=== PATIENT | female | born 1985 | race Hispanic/Latino ===

== ENCOUNTER 2021-04-12 15:44 | Emergency (ER) | payer SELFPAY | END 2021-04-12 16:31 | disposition home or self-care (01) | LOC: NAV ERS 15:44 | DX: S53.402A Unspecified sprain of left elbow, initial encounter (principal); J45.909 Unspecified asthma, uncomplicated; R73.03 Prediabetes; X50.0XXA Overexertion from strenuous movement or load, initial encounter | CPT/HCPCS: 99283 ==

== ENCOUNTER 2022-02-04 13:19 | Emergency (ER) | payer OTHER, SELFPAY | END 2022-02-04 14:17 | disposition home or self-care (01) | LOC: NAV ERS 13:19 | DX: S00.83XA Contusion of other part of head, initial encounter (principal); Z79.899 Other long term (current) drug therapy; W22.8XXA Striking against or struck by other objects, initial encounter | CPT/HCPCS: 99283 ==

== ENCOUNTER 2022-05-31 00:37 | Emergency (ER) | payer SELFPAY ==
[2022-05-31 00:57] LABS: Bilirubin Negative (Negative); Blood, Urine Negative (Negative); Clarity Clear (Clear); Glucose, Urine (Dipstick) >=1000 mg/dL (Negative); Ketone, Urine Negative (Negative); Leukocyte Negative (Negative); Nitrite Negative (Negative); Protein, Urine (Dipstick) Negative (Neg-Trace); Urobilinogen 0.2 mg/dL (Less than 2)
[2022-05-31 01:15] LABS: Pregnancy Test - Urine (BHCG) Negative (Negative); Pregu Control Background? CLEAR/WHITE (CLR/WHITE); Pregu Control Bar Appear? YES (CONTROL BAR)
== END 2022-05-31 01:21 | disposition home or self-care (01) ==
LOC: NAV ERS 00:37
DX: R10.32 Left lower quadrant pain (principal)
CPT/HCPCS: 81003; 81025; 99284